=== PATIENT | female | born 2000 | race Caucasian/White ===

== ENCOUNTER → 2023-05-30 | Outpatient (CLI) | payer OTHER, SELFPAY ==
--- NOTE | 2023-05-30 11:40 | CYSPIN_PTH ---
PATHOLOGY RESULTS PATIENT: ZAIDA TOUSSAINT LOC: [facility] U#:[id number] AGE/SX: 22/ ROOM: RE05/30/[address]: Dr. Carmella Osullivan MD : 2000 BED: DIS: 05/30/2023 SPEC #: [id number] RECD: 05/31/23 07:08 STATUS: ARSLAN PATRICK #: [id number] MAXI: 05/30/23 11:[address]: Carmella Osullivan DEPT: CYTOLOGY RECD BY: Sushila Thakur ENTERED: 05/31/23 07:08 SP TYPE: CYSPIN FL Tissues: Urine Procedures: Pap Stain (control) Special Stain Group II Cytospin Fluid Comments: @ Specimen number changed from [id number] to [id number] @ on 05/31/23 at 0710 by CE. HEADER OPERATION: Not noted PRE-OP DIAGNOSIS: Gross hematuria TISSUE SUBMITTED: Urine for cytology DIAGNOSIS CYTOLOGY Urine for cytology (cytospin): Negative for high-grade urothelial carcinoma (NHGUC), Sonia System Category II. The specimen primarily consists of squamous epithelial cells. See comment. AM:huber 05/31/2023 COMMENT The Sonia System for urine cytology diagnostic categorization was used in the evaluation of this case. Clinical correlation is suggested. CYTOLOGY STUDY Slides are reviewed. CYTOLOGY GROSS Received is 30 ml of light yellow cloudy fluid labeled with the patient's name and and designated per the requisition as urine. Submitted for cytology preparation. / huber 05/30/2023 TC:5 CPT: 00106
[2023-05-30 17:39] LABS: Cytology, Body Fluid / CSF SEE PATHOLOGY REPORT
== END | disposition home or self-care (01) ==
PROVIDERS: Visit Provider Urology
DX: R31.0 Gross hematuria (principal)
CPT/HCPCS: 88108; 88313